=== PATIENT | male | born 1980 | race African-American/Black ===

== ENCOUNTER 2018-02-07 13:29 | Emergency (ER) | payer MEDICAID ==
[~2018-02-07] VITALS: Ht 182.9 cm; Wt 90.0 kg
[~2018-02-07 13:29] MED LIST: CETI-102 PO; FAMO40TA73 PO; NO HOME MEDS; PRED10TA PO
[2018-02-07 14:04] VITALS: BP 184/118
[2018-02-07] MEDS ORDERED: DOXY100C43 PO (14:34)
== END 2018-02-07 14:55 | disposition home or self-care (01) ==
LOC: ER 13:30
DX: L08.89 Other specified local infections of the skin and subcutaneous tissue (principal); Z88.2 Allergy status to sulfonamides
CPT/HCPCS: 99283

== ENCOUNTER 2018-07-12 11:40 | Emergency (ER) | payer MEDICAID ==
[~2018-07-12] VITALS: Ht 182.9 cm; Wt 200.0 kg
[2018-07-12 11:47] VITALS: BP 156/107
[2018-07-12] MEDS ORDERED: methylPREDNISolone sod succ 125mg/2ml vial IV ONE (13:15)
[2018-07-12] MEDS ORDERED: PRED20TA PO (13:43)
== END 2018-07-12 13:50 | disposition home or self-care (01) ==
LOC: ER 11:41
DX: L98.9 Disorder of the skin and subcutaneous tissue, unspecified (principal); L53.8 Other specified erythematous conditions; Z86.14 Personal history of Methicillin resistant Staphylococcus aureus infection; Z79.899 Other long term (current) drug therapy; Z88.2 Allergy status to sulfonamides
CPT/HCPCS: 96372; 99283; J2930

== ENCOUNTER 2019-07-04 06:37 | Emergency (ER) | payer MEDICAID ==
[~2019-07-04] VITALS: Ht 182.9 cm; Wt 84.1 kg
[~2019-07-04 06:37] MED LIST changes: -CETI-102 PO; +CETI-90 PO
--- NOTE | 2019-07-04 07:16 | NUR ---
DR. DENISE AT BEDSIDE.
--- NOTE | 2019-07-04 07:38 | NUR ---
COVID SWAB OBTAINED AND SENT TO THE LAB.PRIMARY RN AWARE.
[2019-07-04 07:52] LABS: BASOPHILS % (AUTO) 0.3 % (0-1); EOSINOPHILS # (AUTO) 0.5 X10'3 (0-0.9); EOSINOPHILS % (AUTO) 4.5 % (0-6); HEMATOCRIT 46.8 % (42.0-52.0); HEMOGLOBIN 15.7 g/dl (14.0-17.9); LYMPHOCYTES # (AUTO) 1.5 X10'3 (1.1-4.8); LYMPHOCYTES % (AUTO) 13.3 % (21-51); MEAN CORPUSCULAR HEMOGLOBIN 29.2 PG (27.0-31.0); MEAN CORPUSCULAR HGB CONC 33.5 g/dL (33.0-36.5); MEAN PLATELET VOLUME 7.1 FL (7.4-10.4); MONOCYTES # (AUTO) 0.6 X10'3 (0-0.9); MONOCYTES % (AUTO) 5.3 % (2-12); NEUTROPHILS # (AUTO) 8.3 X10'3 (1.8-7.7); NEUTROPHILS % (AUTO) 76.6 % (42-75); PLATELET COUNT 327 X10'3 (140-440); RED BLOOD COUNT 5.37 X10'6 (4.70-6.10); RED CELL DISTRIBUTION WIDTH 12.7 % (11.5-14.5); WHITE BLOOD COUNT 10.9 X10'3 (4.5-11.0)
[2019-07-04 08:09] LABS: ALANINE AMINOTRANSFERASE 27 U/L (12-78); ALBUMIN 4.2 G/DL (3.4-5.0); ALBUMIN/GLOBULIN RATIO 1.1 (1.1-1.5); ALKALINE PHOSPHATASE 51 IU/L (46-116); ANION GAP 9 (8-16); ASPARTATE AMINO TRANSFERASE 21 U/L (10-37); BILIRUBIN,TOTAL 0.3 MG/DL (0.1-1.0); BLOOD UREA NITROGEN 15 MG/DL (7-18); CALCIUM 9.3 MG/DL (8.5-10.1); CHLORIDE 104 MMOL/L (99-107); GLUCOSE 107 MG/DL (70-104); POTASSIUM 4.8 MMOL/L (3.5-5.1); SODIUM 138 MMOL/L (135-145); TOTAL CARBON DIOXIDE 25.5 MMOL/L (24-32); TOTAL PROTEIN 7.9 G/DL (6.4-8.2); eGFR > 90 ML/MIN
[2019-07-04] MEDS ORDERED: normal saline 1000ML IV soln IVB ONE (09:20)
[2019-07-04] MEDS ORDERED: albuterol 2.5 MG/3 ML nebule NEB ONE (09:20)
[2019-07-04] MEDS ORDERED: methylPREDNISolone sod succ 125mg/2ml vial IV ONE (09:20)
[2019-07-04] MEDS ORDERED: ipratropium/albuterol 3ml nebule NEB ONE (09:20)
[2019-07-04] MEDS ORDERED: ALBU8HFA PO (10:40)
[2019-07-04] MEDS ORDERED: PRED20TA PO (10:44)
[2019-07-04 10:56] VITALS: BP 157/105
== END 2019-07-04 11:12 | disposition home or self-care (01) ==
LOC: ER 06:37
DX: B34.9 Viral infection, unspecified (principal); J45.909 Unspecified asthma, uncomplicated; R19.7 Diarrhea, unspecified; F12.90 Cannabis use, unspecified, uncomplicated; Z03.818 Encounter for observation for suspected exposure to other biological agents ruled out; Z86.14 Personal history of Methicillin resistant Staphylococcus aureus infection; Z88.2 Allergy status to sulfonamides; Z79.899 Other long term (current) drug therapy
CPT/HCPCS: 36415; 71045; 80053; 83880; 85025; 87635; 93005; 94640; 96374; 99285; J2930; J7030; 94760

== ENCOUNTER 2020-12-14 16:05 | Emergency (ER) | payer MEDICAID ==
[~2020-12-14] VITALS: Ht 182.9 cm; Wt 84.1 kg
[2020-12-14 17:46] LABS: BASOPHILS % (AUTO) 0.4 % (0-1); EOSINOPHILS # (AUTO) 0.9 X10'3 (0-0.9); EOSINOPHILS % (AUTO) 8.7 % (0-6); HEMOGLOBIN 15.9 g/dl (14.0-17.9); LYMPHOCYTES # (AUTO) 2.6 X10'3 (1.1-4.8); LYMPHOCYTES % (AUTO) 25.7 % (21-51); MEAN CORPUSCULAR HEMOGLOBIN 29.1 PG (27.0-31.0); MEAN CORPUSCULAR HGB CONC 34.6 g/dL (33.0-36.5); MEAN CORPUSCULAR VOLUME 84.1 FL (78-98); MEAN PLATELET VOLUME 6.9 FL (7.4-10.4); MONOCYTES # (AUTO) 0.8 X10'3 (0-0.9); MONOCYTES % (AUTO) 7.6 % (2-12); NEUTROPHILS # (AUTO) 5.8 X10'3 (1.8-7.7); NEUTROPHILS % (AUTO) 57.6 % (42-75); PLATELET COUNT 407 X10'3 (140-440); RED BLOOD COUNT 5.47 X10'6 (4.70-6.10); RED CELL DISTRIBUTION WIDTH 12.9 % (11.5-14.5)
[2020-12-14 18:01] LABS: ALANINE AMINOTRANSFERASE 40 U/L (12-78); ALBUMIN 3.9 G/DL (3.4-5.0); ALKALINE PHOSPHATASE 65 IU/L (46-116); ANION GAP 10 (8-16); ASPARTATE AMINO TRANSFERASE 20 U/L (10-37); BILIRUBIN,TOTAL 0.2 MG/DL (0.1-1.0); BLOOD UREA NITROGEN 17 MG/DL (7-18); BUN/CREATININE RATIO 15.9 (5.4-32.0); CALCIUM 8.8 MG/DL (8.5-10.1); CHLORIDE 105 MMOL/L (99-107); CREATININE 1.07 MG/DL (0.60-1.10); GLUCOSE 106 MG/DL (70-104); POTASSIUM 4.4 MMOL/L (3.5-5.1); SODIUM 142 MMOL/L (135-145); TOTAL CARBON DIOXIDE 26.6 MMOL/L (24-32); eGFR > 90 ML/MIN
[2020-12-14] MEDS ORDERED: BENZ-16 PO (18:14)
[2020-12-14] MEDS ORDERED: ALBU6.7H9 INH (18:14)
[2020-12-14] MEDS ORDERED: PRED10TA23 PO (18:14)
[2020-12-14 19:04] VITALS: BP 158/105
== END 2020-12-14 19:06 | disposition home or self-care (01) ==
LOC: ER 16:06
DX: J40 Bronchitis, not specified as acute or chronic (principal); Z20.822 Contact with and (suspected) exposure to COVID-19; R05.9 Cough, unspecified; R06.02 Shortness of breath; R53.1 Weakness; F12.90 Cannabis use, unspecified, uncomplicated; Z86.14 Personal history of Methicillin resistant Staphylococcus aureus infection; Z98.890 Other specified postprocedural states; Z88.2 Allergy status to sulfonamides; Z79.899 Other long term (current) drug therapy
CPT/HCPCS: 36415; 71045; 80053; 85025; 87635; 99284; C9803

== ENCOUNTER 2022-06-27 20:59 | Emergency (ER) | payer MEDICAID ==
[~2022-06-27] VITALS: Ht 182.9 cm; Wt 90.9 kg
[~2022-06-27 20:59] MED LIST changes: +ALBU6.7H14 INH; +BENZ-16 PO
[2022-06-27 21:01] VITALS: BP 148/87
== END 2022-06-27 23:08 | disposition left against medical advice (07) ==
LOC: ER 20:59
DX: S61.211A Laceration without foreign body of left index finger without damage to nail, initial encounter (principal); Z53.21 Procedure and treatment not carried out due to patient leaving prior to being seen by health care provider; W26.0XXA Contact with knife, initial encounter; Y93.89 Activity, other specified; Y92.89 Other specified places as the place of occurrence of the external cause; Y99.8 Other external cause status
CPT/HCPCS: 73140; 99281